=== PATIENT | male | born 1960 | race Caucasian/White ===

== ENCOUNTER 2019-06-25 13:18 | Day surgery (SDC) | payer OTHER ==
[~2019-06-25] VITALS: Ht 170.2 cm; Wt 104.3 kg
[~2019-06-25 13:18] MED LIST: ACET1TAB55 PO; ECOT81TA5 PO; FURO20TA2 PO; GEMF600T5 PO; HYDR-4517 PO; NAPR-885 PO; NS 1,000 ML IV ONE; SPIR100T3 PO
[2019-06-25] MEDS ORDERED: fentaNYL 100 MCG/2 ML INJECTION (J3010) As Ordered ONE (14:11)
[2019-06-25] MEDS ORDERED: PHENYLephrine HCL 500 MCG/5 ML (100MCG/ML) SYRINGE (J2370) As Ordered ONE (14:15)
[2019-06-25] MEDS ORDERED: PROPOFOL 200 MG/20 ML VIAL As Ordered ONE (14:15)
[2019-06-25] MEDS ORDERED: LIDOCAINE 2% INJ 100 MG/5 ML SDV (FOR ANES.) As Ordered ONE (14:16)
--- NOTE | 2019-06-25 14:50 | ROOR ---
Patient Name: Vinicius Singleton Procedure Date: 06/25/2019 2:12 PM Date of : 1960 Age: 59 Room: [facility] Gender: Male Note Status: Finalized Procedure: Colonoscopy Indications: High risk colon cancer surveillance: Personal history of colonic polyps Providers: Alvin Cheung MD Referring MD: Ki Baker Requesting Provider: Medicines: Monitored Anesthesia Care Complications: No immediate complications. Procedure: Pre-Anesthesia Assessment: - Prior to the procedure, a History and Physical was performed, and patient medications and allergies were reviewed. The patient is competent. The risks and benefits of the procedure and the sedation options and risks were discussed with the patient. All questions were answered and informed consent was obtained. Patient identification and proposed procedure were verified by the physician, the nurse and the lapper in the endoscopy suite. Mental Status Examination: alert and oriented. Airway Examination: normal oropharyngeal airway and neck mobility. Respiratory Examination: clear to auscultation. CV Examination: normal. Prophylactic Antibiotics: The patient does not require prophylactic antibiotics. Prior Anticoagulants: The patient has taken no previous anticoagulant or antiplatelet agents. ASA Grade Assessment: III - A patient with severe systemic disease. After reviewing the risks and benefits, the patient was deemed in satisfactory condition to undergo the procedure. The anesthesia plan was to use monitored anesthesia care (MAC). Immediately prior to administration of medications, the patient was re-assessed for adequacy to receive sedatives. The heart rate, respiratory rate, oxygen saturations, blood pressure, adequacy of pulmonary ventilation, and response to care were monitored throughout the procedure. The physical status of the patient was re-assessed after the procedure. The Colonoscope was introduced through the anus and advanced to the cecum, identified by appendiceal orifice and ileocecal valve. The colonoscopy was technically difficult and complex due to a redundant colon. The patient tolerated the procedure well. The quality of the bowel preparation was adequate to identify polyps. Findings: Hemorrhoids were found on perianal exam. A few small-mouthed diverticula were found in the sigmoid colon and descending colon. Two sessile polyps were found in the recto-sigmoid colon. The polyps were diminutive in size. These polyps were removed with a cold snare. Resection and retrieval were complete. Estimated blood loss was minimal. One 2 mm submucosal nodule was found in the sigmoid colon. Previously seen at his other colonoscopies labeled as leiomyoma. Not obstructing The retroflexed view of the distal rectum and anal verge was normal and showed no anal or rectal abnormalities. Impression: - Hemorrhoids found on perianal exam. - Diverticulosis in the sigmoid colon and in the descending colon. - Two diminutive polyps at the recto-sigmoid colon, removed with a cold snare. Resected and retrieved. - Submucosal nodule in the sigmoid colon. - The distal rectum and anal verge are normal on retroflexion view. Recommendation: - Discharge patient to home (ambulatory). - Repeat colonoscopy in 5 years for surveillance. Alvin Cheung MD Alvin Cheung MD 06/25/2019 2:49:54 PM Electronically signed by Alvin Cheung MD Number of Addenda: 0 Note Initiated On: 06/25/2019 2:12 PM Estimated Blood Loss: Estimated blood loss was minimal.
[2019-06-25 15:17] VITALS: BP 126/77
== END 2019-06-25 15:19 | disposition home or self-care (01) ==
LOC: M OPP 13:18
PROVIDERS: ATTEND Surgery
DX: Z12.11 Encounter for screening for malignant neoplasm of colon (principal); Z86.010 Personal history of colon polyps; K64.9 Unspecified hemorrhoids; D12.7 Benign neoplasm of rectosigmoid junction; K63.89 Other specified diseases of intestine; K57.30 Diverticulosis of large intestine without perforation or abscess without bleeding; F17.210 Nicotine dependence, cigarettes, uncomplicated; Z79.82 Long term (current) use of aspirin; Z79.891 Long term (current) use of opiate analgesic; Z79.899 Other long term (current) drug therapy
CPT/HCPCS: 45385; 88305; J2370; J3010

== ENCOUNTER → 2022-09-19 | Outpatient (CLI) | payer OTHER ==
[~2022-09-19] MED LIST changes: -NS 1,000 ML IV ONE
== END ==
LOC: M RAD 10:35
PROVIDERS: ATTEND Nurse Practitioner Family
DX: C64.2 Malignant neoplasm of left kidney, except renal pelvis (principal); Q61.02 Congenital multiple renal cysts

== ENCOUNTER → 2023-05-22 | Outpatient (CLI) | payer OTHER | LOC: M RAD 08:51 | PROVIDERS: ATTEND Nurse Practitioner Family | DX: E05.00 Thyrotoxicosis with diffuse goiter without thyrotoxic crisis or storm (principal) | CPT/HCPCS: 78012; A9516 ==